=== PATIENT | female | born 1950 | race Caucasian/White ===

== ENCOUNTER 2022-01-25 20:15 | Emergency (ER) | payer MEDICARE, OTHER ==
[~2022-01-25] VITALS: Ht 152.4 cm; Wt 74.8 kg
[2022-01-25 20:27] VITALS: BP 150/67
--- NOTE | 2022-01-25 20:32 | ED Hip Pain/Injury ---
General Chief Complaint: Hip/Pelvic Problems Stated Complaint: FALL Source: patient Exam Limitations: no limitations History of Present Illness Date Seen by Provider: Jan 25, 2022 Time Seen by Provider: 20:17 Initial Comments 71-year-old female with past medical history of rheumatoid arthritis coming in after she tripped on a carpet, fell landing on her left side a couple hours prior to arrival. Does not believe she hit her head or passed out. Remembers all events. Having left hip pain worse with movement, better with rest. Has not taken anything for the pain as of yet. Also having some left shoulder pain. Does not take any blood thinners. Otherwise denying any other acute complaints has been ambulatory since the incident. Allergies and Home Medications Allergies Coded Allergies: tramadol (Verified Allergy, Unknown, 01/25/22) Patient Home Medication List Home Medication List Reviewed: Yes Review of Systems Constitutional: No fever EENTM: no symptoms reported Respiratory: no symptoms reported Cardiovascular: no symptoms reported Gastrointestinal: no symptoms reported Genitourinary: no symptoms reported Musculoskeletal: see HPI Skin: no symptoms reported Psychiatric/Neurological: No Symptoms Reported All Other Systems Reviewed Negative Unless Noted: Yes Past Piyeern-Ywhhoq-Krtfcm Hx Patient Social History Tobacco Use?: No Substance use?: No Alcohol Use?: No Past Medical History Surgeries: Yes Orthopedic Physical Exam Vital Signs Vital Signs - First Documented 01/25/22 20:27 Temp 36.4 Pulse 92 Resp 18 B/P (MAP) 150/67 (94) Pulse Ox 97 Capillary Refill : Height, Weight, BMI Height: '" Weight: lbs. oz. kg; BMI Method: General Appearance: No Apparent Distress, WD/WN HEENT: PERRL/EOMI, Normal ENT Inspection, Pharynx Normal Neck: Full Range of Motion, Normal Inspection, Non Tender, Supple Cardiovascular: Regular Rate, Rhythm, No Edema, Normal Peripheral Pulses Respiratory: Chest Non Tender, Lungs Clear, Normal Breath Sounds, No Accessory Muscle Use, No Respiratory Distress Gastrointestinal: Normal Bowel Sounds, Non Tender, Soft; No Guarding Back: Normal Inspection, No CVA Tenderness, No Vertebral Tenderness Extremity: Normal Capillary Refill, Normal Inspection, Normal Range of Motion, No Calf Tenderness, No Pedal Edema, Other (Pain along the lateral left hip and lateral left shoulder, antalgic gait) Neurologic/Psychiatric: Alert, Oriented x3, No Motor/Sensory Deficits, Normal Mood/Affect Skin: Normal Color, Warm/Dry Lymphatic: No Adenopathy Progress/Results/Core Measures Results/Orders My Orders Orders - MARIO BUCKNER MD Ct Head/Cervical Spine Wo (01/25/22 20:29) Pelvis With Left Hip 2-3 View (01/25/22 20:29) Shoulder 3 View Left (01/25/22 20:29) Acetaminophen Tablet (Tylenol Tablet) (01/25/22 20:45) Vital Signs/I&O 01/25/22 20:27 Temp 36.4 Pulse 92 Resp 18 B/P (MAP) 150/67 (94) Pulse Ox 97 Progress Progress Note : Progress Note 71-year-old female with above history coming in after mechanical fall with left- sided hip pain and shoulder pain. ABCs were intact and vitals were stable on presentation with a GCS of 15. CT head and cervical spine ordered and showed no acute abnormalities. Left shoulder x-ray and pelvis with left hip x-ray on my interpretation with no fracture or dislocation. Offered Tylenol for pain but she refused at this time. I believe she is otherwise stable for discharge with outpatient follow-up. She was sent home with strict return precautions Diagnostic Imaging Diagonstic Imaging: Xray (left shoulder and left hip with pelvis), CT (head and c spine) Comments [facility], [place] NAME: JEIMY PRINCE [facility] REC#: [id number] PT STATUS: REG ER : 1950 PHYSICIAN: MARIO BUCKNER MD ADMIT DATE: 01/25/22/ER FS Signed Date of Exam:01/25/22 PELVIS WITH LEFT HIP 2-3 VIEW INDICATION: Left hip pain after fall. EXAMINATION: Three views were obtained. FINDINGS: The bones are mildly osteopenic. The bony pelvis is intact. The proximal left femur is intact. There is no fracture or dislocation. Soft tissues are unremarkable. IMPRESSION: Osteopenia and some degenerative changes in the lumbar spine; however, no acute fracture or dislocation. Dictated by: Dictated on workstation # [id number] Dict: 01/25/222144 Trans: 01/25/222151 [facility] [id number] Interpreted by: TIARA SCHUMACHER MD Electronically signed by: TIARA SCHUMACHER MD 01/25/222151 [facility], [place] NAME: JEIMY PRINCE [facility] REC#: [id number] PT STATUS: REG ER : 1950 PHYSICIAN: MARIO BUCKNER MD ADMIT DATE: 01/25/22/ER FS Signed Date of Exam:01/25/22 SHOULDER 3 VIEW LEFT INDICATION: Pain after fall. EXAMINATION: Three views were obtained. FINDINGS: There is mild arthrosis of the acromioclavicular joint. Glenohumeral joint is unremarkable. There is no fracture or dislocation. Soft tissues are unremarkable. Left lung apex is clear. IMPRESSION: Arthrosis of the acromioclavicular joint, otherwise unremarkable. Dictated by: Dictated on workstation # [id number] Dict: 01/25/222141 Trans: 01/25/222151 [facility] [id number] Interpreted by: TIARA SCHUMACHER MD Electronically signed by: TIARA SCHUMACHER MD 01/25/222151 [facility] [place] NAME: JEIMY PRINCE [facility] REC#: [id number] PT STATUS: REG ER : 1950 PHYSICIAN: MARIO BUCKNER MD ADMIT DATE: 01/25/22/ER FS Signed Date of Exam:01/25/22 CT HEAD/CERVICAL SPINE WO PROCEDURE: CT head and CT cervical spine without contrast. TECHNIQUE: Multiple contiguous axial images were obtained through the brain and cervical spine without the use of intravenous contrast. Sagittal and coronal reformations through the cervical spine were then performed. Auto Exposure Controls were utilized during the CT exam to meet ALARA standards for radiation dose reduction. INDICATION: Head and neck pain after fall. FINDINGS: There is prominence of the ventricles and sulci. There is some chronic microvascular ischemic disease. There is no hydrocephalus. There is no midline shift. There is no mass, hemorrhage or extra-axial fluid collection. The calvarium is intact. The sinuses and mastoid air cells are clear. There are some calcified subcutaneous nodules, likely dermal related. There is straightening of the normal cervical lordosis. The vertebral body heights are well-maintained. There is no fracture or traumatic subluxation. There is some posterior facet arthropathy. The odontoid is intact and lateral masses are well aligned. The prevertebral soft tissues are within normal limits. The lung apices are clear. IMPRESSION: 1. Atrophy and chronic microvascular ischemic disease; however, no acute intracranial abnormality. 2. Mild cervical spondylosis and degenerative disc disease without acute fracture or traumatic subluxation. Dictated by: Dictated on workstation # [id number] Dict: 01/25/222139 Trans: 01/25/222151 [facility] [id number] Interpreted by: TIARA SCHUMACHER MD Electronically signed by: TIARA SCHUMACHER MD 01/25/222151 Departure Impression Primary Impression: Fall Qualified Codes: W19.XXXA - Unspecified fall, initial encounter Additional Impressions: Left shoulder pain Qualified Codes: M25.512 - Pain in left shoulder Left hip pain Disposition: HOME, SELF-CARE Condition: Stable Departure-Patient Inst. Decision time for Depature: 22:05 Referrals: CHARLIE HARRY MD (PCP/Family) Primary Care Physician Patient Instructions: Contusion (DC) Add. Discharge Instructions: Fortunately nothing is broken and no obvious signs of internal bleeding. Take Tylenol as needed for pain. You can also try icing the areas. You likely will feel worse tomorrow and more areas than he fell today. Give yourself 1 to 2 weeks to start feeling better. If you do not feel better, follow-up with your regular doctor. MARIO BUCKNER MD Jan 25, 2022 20:32
[2022-01-25] MEDS ORDERED: ACETAMINOPHEN 500 MG TAB (TYLENOL) PO ONE (20:45)
--- NOTE | 2022-01-25 21:45 | Diagnostic Imaging Report ---
PROCEDURE: CT head and CT cervical spine without contrast. TECHNIQUE: Multiple contiguous axial images were obtained through the brain and cervical spine without the use of intravenous contrast. Sagittal and coronal reformations through the cervical spine were then performed. Auto Exposure Controls were utilized during the CT exam to meet ALARA standards for radiation dose reduction. INDICATION: Head and neck pain after fall. FINDINGS: There is prominence of the ventricles and sulci. There is some chronic microvascular ischemic disease. There is no hydrocephalus. There is no midline shift. There is no mass, hemorrhage or extra-axial fluid collection. The calvarium is intact. The sinuses and mastoid air cells are clear. There are some calcified subcutaneous nodules, likely dermal related. There is straightening of the normal cervical lordosis. The vertebral body heights are well-maintained. There is no fracture or traumatic subluxation. There is some posterior facet arthropathy. The odontoid is intact and lateral masses are well aligned. The prevertebral soft tissues are within normal limits. The lung apices are clear. IMPRESSION: 1. Atrophy and chronic microvascular ischemic disease; however, no acute intracranial abnormality. 2. Mild cervical spondylosis and degenerative disc disease without acute fracture or traumatic subluxation. Dictated by: Dictated on workstation # [id number]
--- NOTE | 2022-01-25 21:46 | Diagnostic Imaging Report ---
INDICATION: Pain after fall. EXAMINATION: Three views were obtained. FINDINGS: There is mild arthrosis of the acromioclavicular joint. Glenohumeral joint is unremarkable. There is no fracture or dislocation. Soft tissues are unremarkable. Left lung apex is clear. IMPRESSION: Arthrosis of the acromioclavicular joint, otherwise unremarkable. Dictated by: Dictated on workstation # [id number]
--- NOTE | 2022-01-25 21:47 | Diagnostic Imaging Report ---
INDICATION: Left hip pain after fall. EXAMINATION: Three views were obtained. FINDINGS: The bones are mildly osteopenic. The bony pelvis is intact. The proximal left femur is intact. There is no fracture or dislocation. Soft tissues are unremarkable. IMPRESSION: Osteopenia and some degenerative changes in the lumbar spine; however, no acute fracture or dislocation. Dictated by: Dictated on workstation # [id number]
== END 2022-01-25 22:14 ==
LOC: EDUNIT# 20:15 → ER FS 20:16
DX: M25.512 Pain in left shoulder (principal); M25.552 Pain in left hip; Z88.5 Allergy status to narcotic agent; W01.0XXA Fall on same level from slipping, tripping and stumbling without subsequent striking against object, initial encounter
CPT/HCPCS: 70450; 72125; 73030; 73502